=== PATIENT | female | born 1960 | race Hispanic/Latino ===

== ENCOUNTER → 2018-11-27 | Outpatient (CLI) | payer BC ==
--- NOTE | 2018-11-30 09:10 | Diagnostic Imaging Report ---
#[id number] - [id number] #BILATERAL DIGITAL SCREENING MAMMOGRAM WITH CAD: 11/27/2018 CLINICAL: Routine screening. Comparison is made to exams dated: 02/05/2017 mammogram and 09/15/2015 mammogram - [facility]. Current study contains 4 films. There are scattered fibroglandular elements in both breasts. Current study was also evaluated with a Computer Aided Detection (CAD) system. Benign appearing calcifications are noted bilaterally. No significant masses, calcifications, or other findings are seen in either breast. IMPRESSION: BENIGN There is no mammographic evidence of malignancy. A 1 year screening mammogram is recommended. The patient will be notified by letter of the results. EARNESTINE EDEN M.D. ct/penrad:11/27/2018 11:28:38 Supervisor Inspection And Testing: Dee TELLO(Shayy)(Dana), [facility] letter sent: Normal Exam Mammogram BI-RADS: 2 Benign
== END ==
LOC: MAMMO 09:34
PROVIDERS: ATTEND Internal Medicine
DX: Z12.31 Encounter for screening mammogram for malignant neoplasm of breast (principal)
CPT/HCPCS: 77067

== ENCOUNTER → 2020-02-04 | Outpatient (CLI) | payer BC ==
--- NOTE | 2020-02-04 10:43 | Diagnostic Imaging Report ---
Right knee MRI without contrast. History: Knee pain. Decreased range of motion. Pain not responding to conservative management. Comparison: None. Technique: Multiplanar multi-sequence MRI of the knee without contrast. Findings: Medial compartment: Mild mid substance degeneration of the medial meniscus. No meniscal tear, cartilage abnormality, or MCL tear. Lateral compartment: No meniscal tear or cartilage abnormality. The LCL complex is normal. Intercondylar notch: The ACL and PCL are intact. Patellofemoral compartment: Articular cartilage fraying and deep fissuring in the patellofemoral compartment with underlying bone marrow edema. Extensor mechanism: The quadriceps and patellar tendons are normal. Other findings: There is a joint effusion and synovitis. There is no acute fracture, subluxation or avascular necrosis. Varicose veins laterally. Scarring and thickening in Hoffa's fat with focal 1.5 cm masslike synovitis with regions of decreased fluid signal intensity signal. This is best seen on sagittal image 17 through 22. Correlate for PVNS. IMPRESSION: Scarring and thickening in Hoffa's fat with focal 1.5 cm masslike synovitis with regions of decreased fluid signal intensity signal. This is best seen on sagittal image 17 through 22. Correlate for PVNS. Articular cartilage fraying and deep fissuring in the patellofemoral compartment with underlying bone marrow edema. No meniscal tear, collateral ligament tear or cruciate ligament tear. Signed by: Dr. Tiago Mcgill M.D. on 02/04/2020 10:40 AM
== END ==
LOC: MRI 09:14
PROVIDERS: ATTEND Internal Medicine
DX: Z12.31 Encounter for screening mammogram for malignant neoplasm of breast (principal); M17.11 Unilateral primary osteoarthritis, right knee
CPT/HCPCS: 77067

== ENCOUNTER → 2021-02-02 | Outpatient (CLI) | payer BC | LOC: MAMMO 08:27 | PROVIDERS: ATTEND Internal Medicine | DX: Z12.31 Encounter for screening mammogram for malignant neoplasm of breast (principal); M25.532 Pain in left wrist | CPT/HCPCS: 77067 ==

== ENCOUNTER → 2023-11-21 | Outpatient (REF) | payer BC | LOC: US 08:56 | PROVIDERS: ATTEND Specialist | DX: N95.0 Postmenopausal bleeding (principal); R10.2 Pelvic and perineal pain | CPT/HCPCS: 76830; 76856 ==

== ENCOUNTER → 2024-03-05 | Outpatient (REF) | payer BC | LOC: MAMMO 09:57 | PROVIDERS: ATTEND Specialist | DX: Z12.31 Encounter for screening mammogram for malignant neoplasm of breast (principal) | CPT/HCPCS: 77067 ==